=== PATIENT | male | born 1995 | race Caucasian/White ===

== ENCOUNTER 2021-09-19 12:38 | Emergency (ER) | payer MEDICAID ==
[~2021-09-19] VITALS: Ht 180.3 cm; Wt 117.9 kg
[2021-09-19] MEDS ORDERED: PREDNISONE20 MG PO (13:21)
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
== END 2021-09-19 13:34 | disposition home or self-care (01) ==
LOC: ED 12:38
DX: S40.862A Insect bite (nonvenomous) of left upper arm, initial encounter (principal); S00.86XA Insect bite (nonvenomous) of other part of head, initial encounter; W57.XXXA Bitten or stung by nonvenomous insect and other nonvenomous arthropods, initial encounter
CPT/HCPCS: 99281; J7512